=== PATIENT | female | born 1985 | race Caucasian/White ===

== ENCOUNTER 2017-01-28 09:24 | Emergency (ER) | payer SELFPAY ==
[~2017-01-28] VITALS: Ht 162.6 cm; Wt 108.9 kg
[2017-01-28 10:40] LABS: BILIRUBIN,URINE SMALL (NEG); GLUCOSE,URINE 100 mg/dL (NEG); NITRITE,URINE POSITIVE (NEG); PROTEIN,URINE 100 mg/dL (NEG-TRACE)
[2017-01-28] MEDS ORDERED: IV NORMAL SALINE 1000ML BAG 1,000 ML IV ONE (10:45)
[2017-01-28 10:52] LABS: BARBITURATES NEG (NEG); BENZODIAZEPINES NEG (NEG); CANNABINOIDS NEG (NEG); COCAINE NEG (NEG); METHADONE NEG (NEG); OPIATES NEG (NEG); PHENCYCLIDINE NEG (NEG)
--- NOTE | 2017-01-28 10:53 | EKG ---
[facility] [address] [place] [address] Test Date: 2017-01-28 Test Time: 09:37:34 Pat Name: CLARA KLEIN Department: Room: Gender: F [employer]: : 1985 Requested By: SHAHIDA COOPER Order Number: [id number] Reading MD: Chas Herrera Measurements Intervals [place] Rate: 50 P: 0 [place]: 142 QRS: 28 QRSD: 86 T: 26 QT: 424 QTc: 389 Interpretive Statements SINUS RHYTHM Electronically Signed On 02-04-2017 8:54:23 CDT by Chas Herrera
--- NOTE | 2017-01-28 10:53 | RAD ---
Indication: Mid back pain. Time of exam 10:30 AM Curvature and alignment of the thoracic spine is normal. The vertebral body heights are well-maintained. No fractures are seen. The pedicles and paraspinous line are intact. Impression: No acute bony abnormality is detected.
[2017-01-28 11:06] LABS: BASO % 0 % (0-3); EOS % 1 % (0-3); HEMATOCRIT 44.5 % (36.0-47.0); HEMOGLOBIN 15.1 g/dL (12.0-15.5); LYMPH # 2.1 x10^3/uL (1.0-4.8); LYMPH % 20 % (24-48); MEAN CORPUSCULAR HEMOGLOBIN 32 pg (25-35); MEAN CORPUSCULAR HGB CONC 34 g/dL (31-37); MEAN CORPUSCULAR VOLUME 95 fL (79-100); MONO % 5 % (0-9); NEUT % 75 % (31-73); PLATELET COUNT 250 x10^3/uL (140-400); RED BLOOD COUNT 4.69 x10^6/uL (3.50-5.40); RED CELL DISTRIBUTION WIDTH 13.4 % (11.5-14.5); WHITE BLOOD COUNT 10.6 x10^3/uL (4.0-11.0)
[2017-01-28 11:15] LABS: BACTERIA,URINE MOD /HPF (0-FEW); RBC,URINE 0 /HPF (0-2)
[2017-01-28 11:16] LABS: SQUAMOUS EPITHELIAL CELL,UR FEW /LPF
[2017-01-28 11:24] LABS: INR 0.9 (0.8-1.1); PROTHROMBIN TIME PATIENT 11.9 SEC (11.7-14.0)
[2017-01-28 11:26] LABS: CREATININE 0.7 mg/dL (0.6-1.0); GFR 98.9; POTASSIUM 4.4 mmol/L (3.5-5.1)
[2017-01-28] MEDS ORDERED: KETOROLAC 15 MG/ML VIAL. IV ONE (11:30)
[2017-01-28 11:31] LABS: ALBUMIN 2.9 g/dL (3.4-5.0); ALBUMIN/GLOBULIN RATIO 0.9 (1.0-1.7); TOTAL BILIRUBIN 0.6 mg/dL (0.2-1.0); TOTAL PROTEIN 6.3 g/dL (6.4-8.2)
[2017-01-28 11:41] VITALS: BP 132/75
[2017-01-28 11:44] LABS: CKMB MASS < 0.5 ng/mL (0.0-3.6); CREATINE KINASE 32 U/L (26-192)
[2017-01-28] MEDS ORDERED: CIPR500T94 PO (12:25)
[2017-01-28] MEDS ORDERED: PROM25TA10 PO (12:25)
[2017-01-28] MEDS ORDERED: TRAM-29 PO (12:25)
--- NOTE | 2017-01-28 12:25 | PHYS DOC ---
Past Medical History Past Medical History: Other Additional Past Medical Histor: obesity Past Surgical History: No Surgical History Alcohol Use: None Drug Use: None Adult General Chief Complaint Chief Complaint: BACK PAIN - NO INJURY HPI HPI Patient is a 31 year old female with a history of fatty liver who presents today with mid back pain and nausea that began this morning. Patient denies any vomiting. Patient denies any fever urgency frequency or dysuria. Per EMS report they state patient was hypotensive with blood pressures in the 90s over 50s and heart rate 50-59s. Patient denies any history of bradycardia. Patient denies any chest pain or shortness of breath. Patient states she could be , her last menstrual cycle was in May but she states her periods are irregular. She is currently a smoker using less than a pack of cigarettes per day. Review of Systems Review of Systems Constitutional: Denies fever or chills [] Eyes: Denies change in visual acuity, redness, or eye pain [] HENT: Denies nasal congestion or sore throat [] Respiratory: Denies cough or shortness of breath [] Cardiovascular: Bradycardia GI: Nausea : Mid back pain Musculoskeletal: Denies back pain or joint pain [] Integument: Denies rash or skin lesions [] Neurologic: Denies headache, focal weakness or sensory changes [] Endocrine: Denies polyuria or polydipsia [] Current Medications Current Medications Current Medications Medications (Trade) Dose Ordered Sig/Vicente Start Time Stop Time Status Last Admin Dose Admin Ceftriaxone Sodium 50 ml @ 100 mls/hr 1X ONCE 01/28/17 11:30 01/28/17 11:59 DC 01/28/17 11:38 100 MLS/HR Ketorolac Tromethamine (Toradol) 15 mg 1X ONCE 01/28/17 11:30 01/28/17 11:31 DC 01/28/17 11:38 15 MG Sodium Chloride 1,000 ml @ 1,000 mls/hr 1X ONCE 01/28/17 10:45 01/28/17 11:44 DC 01/28/17 10:32 1,000 MLS/HR Allergies Allergies Allergies Coded Allergies Type Severity Reaction Last Updated Verified latex Allergy Intermediate 01/28/17 Yes Physical Exam Physical Exam Constitutional: Well developed, well nourished, no acute distress, non-toxic appearance. [] HENT: Normocephalic, atraumatic, bilateral external ears normal, oropharynx moist, no oral exudates, nose normal. [] Eyes: PERRLA, EOMI, conjunctiva normal, no discharge. [] Neck: Normal range of motion, no tenderness, supple, no stridor. [] Cardiovascular:Heart rate regular rhythm, no murmur [] Lungs & Thorax: Bilateral breath sounds clear to auscultation [] Abdomen: Bowel sounds normal, soft, no tenderness, no masses, no pulsatile masses. [] Skin: Warm, dry, no erythema, no rash. [] Back: No tenderness, mild bilateral tenderness. [] Extremities: No tenderness, no cyanosis, no clubbing, ROM intact, no edema. [] Neurologic: Alert and oriented X 3, normal motor function, normal sensory function, no focal deficits noted. [] Psychologic: Affect normal, judgement normal, mood normal. [] Current Patient Data Vital Signs Vital Signs Date Time Temp Pulse Resp B/P (MAP) Pulse Ox O2 Delivery O2 Flow Rate FiO2 01/28/17 11:41 58 20 132/75 (94) 96 01/28/17 09:25 97.6 Room Air 97.6 Lab Values Laboratory Tests Test 01/28/17 09:00 01/28/17 09:55 01/28/17 10:55 POC Urine HCG, Qualitative Hcg negative (Negative) Urine Collection Type Unknown Urine Color [place] Urine Clarity Cloudy Urine pH 7.0 Urine Specific [place] 1.025 Urine Protein 100 mg/dL (NEG-TRACE) Urine Glucose (UA) 100 mg/dL (NEG) Urine Ketones (Stick) Trace mg/dL (NEG) Urine Blood Small (NEG) Urine Nitrite Positive (NEG) Urine Bilirubin Small (NEG) Urine Urobilinogen Dipstick 2.0 mg/dL (0.2 mg/dL) Urine Leukocyte Esterase Moderate (NEG) Urine RBC 0 /HPF (0-2) Urine WBC 11-20 /HPF (0-4) Urine Squamous Epithelial Cells Few /LPF Urine Bacteria Mod /HPF (0-FEW) Urine Mucus Marked /LPF Urine Opiates Screen Neg (NEG) Urine Methadone Screen Neg (NEG) Urine Barbiturates Neg (NEG) Urine Phencyclidine Screen Neg (NEG) Urine Amphetamine/Methamphetamine Neg (NEG) Urine Benzodiazepines Screen Neg (NEG) Urine Cocaine Screen Neg (NEG) Urine Cannabinoids Screen Neg (NEG) Urine Ethyl Alcohol Neg (NEG) White Blood Count 10.6 x10^3/uL (4.0-11.0) Red Blood Count 4.69 x10^6/uL (3.50-5.40) Hemoglobin 15.1 g/dL (12.0-15.5) Hematocrit 44.5 % (36.0-47.0) Mean Corpuscular Volume 95 fL (79-100) Mean Corpuscular Hemoglobin 32 pg (25-35) Mean Corpuscular Hemoglobin Concent 34 g/dL (31-37) Red Cell Distribution Width 13.4 % (11.5-14.5) Platelet Count 250 x10^3/uL (140-400) Neutrophils (%) (Auto) 75 % (31-73) H Lymphocytes (%) (Auto) 20 % (24-48) L Monocytes (%) (Auto) 5 % (0-9) Eosinophils (%) (Auto) 1 % (0-3) Basophils (%) (Auto) 0 % (0-3) Neutrophils # (Auto) 7.9 x10^3uL (1.8-7.7) H Lymphocytes # (Auto) 2.1 x10^3/uL (1.0-4.8) Monocytes # (Auto) 0.5 x10^3/uL (0.0-1.1) Eosinophils # (Auto) 0.1 x10^3/uL (0.0-0.7) Basophils # (Auto) 0.0 x10^3/uL (0.0-0.2) Prothrombin Time 11.9 SEC (11.7-14.0) Prothrombin Time INR 0.9 (0.8-1.1) PTT 25 SEC (24-38) D-Dimer (Christin) 0.31 ug/mlFEU (0.00-0.50) Sodium Level 144 mmol/L (136-145) Potassium Level 4.4 mmol/L (3.5-5.1) Chloride Level 107 mmol/L (98-107) Carbon Dioxide Level 30 mmol/L (21-32) Anion Gap 7 (6-14) Blood Urea Nitrogen 12 mg/dL (7-20) Creatinine 0.7 mg/dL (0.6-1.0) Estimated GFR (Cockcroft-Gault) 98.9 BUN/Creatinine Ratio 17 (6-20) Glucose Level 136 mg/dL (70-99) H Calcium Level 9.0 mg/dL (8.5-10.1) Total Bilirubin 0.6 mg/dL (0.2-1.0) Aspartate Amino Transferase (AST) 279 U/L (15-37) H Alanine Aminotransferase (ALT) 185 U/L (14-59) H Alkaline Phosphatase 166 U/L (46-116) H Creatine Kinase 32 U/L (26-192) Creatine Kinase MB (Mass) < 0.5 ng/mL (0.0-3.6) Creatine Kinase MB Relative Index % (0-4) Troponin I Quantitative < 0.017 ng/mL (0.000-0.055) Total Protein 6.3 g/dL (6.4-8.2) L Albumin 2.9 g/dL (3.4-5.0) L Albumin/Globulin Ratio 0.9 (1.0-1.7) L Lipase 208 U/L (73-393) Thyroid Stimulating Hormone (TSH) 3.047 uIU/mL (0.358-3.74) Ethyl Alcohol Level < 10 mg/dL (0-10) Laboratory Tests 01/28/17 10:55 Laboratory Tests 01/28/17 10:55 EKG EKG [] Radiology/Procedures Radiology/Procedures [] Course & Med Decision Making Course & Med Decision Making Pertinent Labs and Imaging studies reviewed. (See chart for details) This is a 31-year-old female patient who presents today with bilateral mid back pain and nausea that began this morning. She was hypotensive and bradycardic prior to arriving to the ED per EMS report. Blood pressure on arrival to the ED was 91/54 with a heart rate of 57. 09:[address] Mueller sinus rhythm heart rate 50, QRS interval 86, no STEMI. Negative urine hCG. CMP with AST of 279, ALT of 185, ALT of 166. Patient states she has history of chronic liver disease. She states she follows up with her PCP for this. Urine positive for infection. Patient was given Rocephin in the ED and discharged with Cipro. Discharged with Ultram for pain and promethazine for nausea vomiting. Follow-up with her own PCP in 1-2 weeks. Dragon Disclaimer Dragon Disclaimer This electronic medical record was generated, in whole or in part, using a voice recognition dictation system. Departure Departure Impression: Primary Impression: Pyelonephritis Additional Impressions: Bradycardia Elevated liver enzymes Disposition: HOME, SELF-CARE Condition: STABLE Referrals: UNKNOWN PCP NAME (PCP) Follow-up with the primary care doctor as soon as you can Patient Instructions: Bradycardia-Brief, Urinary Tract Infection Additional Instructions: You tested positive for urinary tract infection. We put you on antibiotics to clear this infection. Your liver enzymes were elevated. He stated this is a chronic problem due to liver disease. Please follow-up with your own doctor for this. Ensure you complete your antibiotics. Take the prescribed medicines as ordered. Scripts Tramadol Hcl (ULTRAM) 50 Mg Tablet 1 TAB PO Q6HRS, #30 TAB Prov: SHAHIDA COOPER APRN 01/28/17 Promethazine Hcl (PROMETHAZINE HCL) 25 Mg Tablet 1 TAB PO PRN Q6HRS, #20 TAB Prov: SHAHIDA COOPER APRN 01/28/17 Ciprofloxacin Hcl (CIPRO) 500 Mg Tablet 1 TAB PO BID, #14 TAB Prov: SHAHIDA COOPER APRN 01/28/17 Problem Qualifiers SHAHIDA COOPER APRN January 28, 2017 12:25
== END 2017-01-28 12:36 | disposition home or self-care (01) ==
LOC: ER 10:04
DX: N12 Tubulo-interstitial nephritis, not specified as acute or chronic (principal); R00.1 Bradycardia, unspecified; R74.8 Abnormal levels of other serum enzymes; E66.9 Obesity, unspecified; Z91.040 Latex allergy status; Z68.41 Body mass index [BMI] 40.0-44.9, adult
CPT/HCPCS: 36415; 72072; 80053; 80305; 80320; 81001; 81025; 82553; 83690; 84443; 84484; 85027; 85379; 85610; 85730; 93005; 96361; 96365; 96375; 99285; J0690; J1885; J7030; G0480; G0481

== ENCOUNTER 2017-02-02 00:20 | Emergency (ER) | payer SELFPAY ==
[~2017-02-02] VITALS: Ht 162.6 cm; Wt 108.9 kg
[~2017-02-02 00:20] MED LIST: CIPR500T94 PO; PROM25TA10 PO; TRAM-29 PO
[2017-02-02 00:36] VITALS: BP 132/75
--- NOTE | 2017-02-02 00:43 | PHYS DOC ---
Past Medical History Past Medical History: Other Additional Past Medical Histor: obesity Past Surgical History: No Surgical History Alcohol Use: None Drug Use: None Adult General Chief Complaint Chief Complaint: SEXUALLY TRANSMITTED DISEASE HPI HPI Patient is a 31 year old female who presents for an STD check. Patient's boyfriend was seen in the emergency room earlier for possible sexually transmitted disease. Patient denies any vaginal discharge or vaginal complaints. Patient denies abdominal pain. Patient denies any other symptoms. Pertinent exam findings: Abdomen soft and tender, bowel sounds are normal for quadrants ED course: GC and chlamydia swabs along with UA ordered and printed test Patient was treated for an STD with 200 mg of Rocephin given IM and 1 g of Zithromax given by mouth 0121: Results were explained to the patient and that they'll be contacted if the swabs are positive for chlamydia or gonorrhea. Recommend patient follow up PCP in one to 2 days. Pertinent results: UA and were negative, GC and chlamydia pending ED medical decision making: After reviewing the chart, chief complaint, history of present illness, past mental history, physical exam I do not believe the patient has a severe bacterial infection warranting further workup and admission at this time. I believe patient is stable for discharge. Recommended no sexual intercourse until results are back. Additional verbal discharge instructions were provided to the patient and that if symptoms get worse or any new symptoms arise that are worrisome to the patient she is to return to emergency room immediately. Review of Systems Review of Systems Constitutional: Denies fever or chills [] Eyes: Denies change in visual acuity, redness, or eye pain [] HENT: Denies nasal congestion or sore throat [] Respiratory: Denies cough or shortness of breath [] Cardiovascular: No additional information not addressed in HPI [] GI: Denies abdominal pain, nausea, vomiting, bloody stools or diarrhea [] : Denies dysuria or hematuria, STD exposure [] Musculoskeletal: Denies back pain or joint pain [] Integument: Denies rash or skin lesions [] Current Medications Current Medications Current Medications Medications (Trade) Dose Ordered Sig/Vicente Start Time Stop Time Status Last Admin Dose Admin Azithromycin (Zithromax) 1,000 mg 1X ONCE 02/02/17 01:00 02/02/17 01:01 DC 02/02/17 01:00 1,000 MG Ceftriaxone Sodium (Rocephin Im) 250 mg 1X ONCE 02/02/17 01:00 02/02/17 01:01 DC 02/02/17 01:00 250 MG Allergies Allergies Allergies Coded Allergies Type Severity Reaction Last Updated Verified acetaminophen Allergy Intermediate 02/02/17 Yes furosemide Allergy Intermediate 02/02/17 Yes latex Allergy Intermediate 01/28/17 Yes Physical Exam Physical Exam Constitutional: Well developed, well nourished, no acute distress, non-toxic appearance. [] HENT: Normocephalic, atraumatic, bilateral external ears normal, oropharynx moist, no oral exudates, nose normal. [] Eyes: PERRLA, EOMI, conjunctiva normal, no discharge. [] Neck: Normal range of motion, no tenderness, supple, no stridor. [] Cardiovascular:Heart rate regular rhythm, no murmur [] Lungs & Thorax: Bilateral breath sounds clear to auscultation [] Abdomen: Bowel sounds normal, soft, no tenderness, no masses, no pulsatile masses. [] Skin: Warm, dry, no erythema, no rash. [] Back: No tenderness, no CVA tenderness. [] Extremities: No tenderness, no cyanosis, no clubbing, ROM intact, no edema. [] Neurologic: Alert and oriented X 3, normal motor function, normal sensory function, no focal deficits noted. [] Psychologic: Affect normal, judgement normal, mood normal. [] Current Patient Data Vital Signs Vital Signs Date Time Temp Pulse Resp B/P (MAP) Pulse Ox O2 Delivery O2 Flow Rate FiO2 02/02/17 00:36 98.0 109 18 97 Room Air 98.0 Lab Values Laboratory Tests Test 02/01/17 23:34 02/02/17 00:25 POC Urine HCG, Qualitative Hcg negative (Negative) Urine Collection Type Unknown Urine Color Yellow Urine Clarity Clear Urine pH 5.5 Urine Specific [place] 1.020 Urine Protein Negative mg/dL (NEG-TRACE) Urine Glucose (UA) Negative mg/dL (NEG) Urine Ketones (Stick) Negative mg/dL (NEG) Urine Blood Negative (NEG) Urine Nitrite Negative (NEG) Urine Bilirubin Negative (NEG) Urine Urobilinogen Dipstick 0.2 mg/dL (0.2 mg/dL) Urine Leukocyte Esterase Moderate (NEG) Urine RBC Occ /HPF (0-2) Urine WBC 20-40 /HPF (0-4) Urine Squamous Epithelial Cells Many /LPF Urine Bacteria Few /HPF (0-FEW) Urine Hyaline Casts Few /HPF Urine Mucus Mod /LPF Urine Trichomonas Present EKG EKG [] Radiology/Procedures Radiology/Procedures [] Course & Med Decision Making Course & Med Decision Making Pertinent Labs and Imaging studies reviewed. (See chart for details) [] Dragon Disclaimer Dragon Disclaimer This electronic medical record was generated, in whole or in part, using a voice recognition dictation system. Departure Departure Impression: Primary Impression: STD exposure Disposition: 01 HOME, SELF-CARE Condition: STABLE Referrals: NO PCP (PCP) Patient Instructions: Safe Sex Additional Instructions: Please follow-up with family doctor in one to 2 days, no sexual intercourse until results are back MAYE MENSAH DO February 02, 2017 00:43
[2017-02-02 00:53] LABS: BILIRUBIN,URINE NEGATIVE (NEG); GLUCOSE,URINE NEGATIVE (NEG); NITRITE,URINE NEGATIVE (NEG); PH,URINE 5.5; PROTEIN,URINE NEGATIVE (NEG-TRACE); UROBILINOGEN,URINE 0.2 mg/dL (0.2 mg/dL)
[2017-02-02] MEDS ORDERED: cefTRIAXone IM 250 MG VIAL IM ONE (01:00)
[2017-02-02] MEDS ORDERED: AZITHROMYCIN 250 MG TABLET. PO ONE (01:00)
[2017-02-02 01:17] LABS: BACTERIA,URINE FEW /HPF (0-FEW); RBC,URINE OCC /HPF (0-2); SQUAMOUS EPITHELIAL CELL,UR MANY /LPF; TRICHOMONAS,URINE PRESENT; WBC,URINE 20-40 /HPF (0-4)
== END 2017-02-02 01:20 | disposition home or self-care (01) ==
LOC: ER 00:20
DX: Z20.2 Contact with and (suspected) exposure to infections with a predominantly sexual mode of transmission (principal); E66.9 Obesity, unspecified; Z68.23 Body mass index [BMI] 23.0-23.9, adult; Z88.6 Allergy status to analgesic agent; Z88.8 Allergy status to other drugs, medicaments and biological substances; Z91.040 Latex allergy status
CPT/HCPCS: 81001; 81025; 87086; 87491; 87591; 96372; 99284; J0696; Q0144